=== PATIENT | female | born 1960 | race Two or more races ===

== ENCOUNTER → 2017-03-25 | Outpatient (REF) | payer OTHER ==
[~2017-03-25] MED LIST: ALBU17IN2 INH; ALBUTEROL MDI; ASPI81TA85 PO; ATIV1TAB10 PO; CLAR10CA3 PO; FISHCAP; FOLI1TAB4 PO; FOLITAB11; IPRASOL4 INH; KLON0.5T PO; KLON1TAB; KLON2TAB; LIPI10TA PO; LIPI80TA PO; LISI2.5T3 PO; LYRI75CA PO; METO25TAB PO; MULTCAP PO; MULTIVIT; NITR4TASL SL; OMEG10002 PO; OMEG340C PO; OMEP40CA2 PO; PARO20TA3 PO; PAXI20TA; PAXIL; PREG50CA; RANI15TA PO; SELS1SHA14 TOP; TRAZ50TA11 PO; VITA10002 PO; VITA10005 PO; VITA10006 PO; VITA400T PO; VITAMIN B1; ZEST1TAB5 PO
== END ==
LOC: M SMT 12:43
PROVIDERS: ATTEND Nurse Practitioner Women's Health
DX: R35.0 Frequency of micturition (principal)